=== PATIENT | female | born 1965 | race Caucasian/White ===

== ENCOUNTER → 2021-10-05 | Outpatient (CLI) | payer MEDICAID ==
[~2021-10-05] VITALS: Ht 162.6 cm; Wt 142.0 kg
[~2021-10-05] MED LIST: ABILIFY2 MG PO; CELLCEPT 5500 MG/TAB PO; CURCUMIN95% PO; ESTRACE 1MG1 MG/TAB PO; K-DUR20 MEQ PO; LASIX 40MG TABL40 MG PO; MAGNEBIND 300 21 TAB; MULTI VITAMINS1 TAB PO; PHARMASSURE ZIN50 MG; PROBIOTIC BLEN1 EACH PO; PROTONIX 40MG T40 MG PO; PROVENTIL0.09 MG/A1 IH; SINEQUAN 5050 MG/CAP PO; SINGULAIR 110 MG/TAB PO; SPIRIVA RE2.5 MCG/Ac IH; SYNTHROID0.175 MG PO; VIIBRYD20 MG PO; VITAMIND3 5000 PO
[2021-10-05 11:02] VITALS: BP 119/84; PULSE 71; TEMP 98.1
[2021-10-05 12:27] VITALS: BP 110/57; PULSE 87
[2021-10-05 12:28] VITALS: BP 108/70; PULSE 81
[2021-10-05 12:29] VITALS: BP 116/73; PULSE 81
[2021-10-05 12:30] VITALS: BP 110/70; PULSE 84
--- NOTE | 2021-10-05 13:50 | NUR ---
report given to Gillian HUSSEIN, pt is awake and alert, sits up in bed, in room, call light in reach.
== END ==
LOC: COL.CARD 10:25
DX: I50.9 Heart failure, unspecified (principal)
CPT/HCPCS: A9500; J2785

== ENCOUNTER → 2022-08-11 | Outpatient (CLI) | payer MEDICAID ==
[~2022-08-11] MED LIST changes: +OZEMPIC1 MG/0.71 SQ
== END ==
LOC: COL.RAD 09:22
DX: R13.19 Other dysphagia (principal); Z98.84 Bariatric surgery status

== ENCOUNTER → 2024-01-11 | Outpatient (CLI) | payer MEDICAID ==
[~2024-01-11] MED LIST changes: +BRINTELLIX20 PO; +JARDIANCE10 PO
== END ==
LOC: COL.RAD 08:25
DX: K21.9 Gastro-esophageal reflux disease without esophagitis (principal); Z98.84 Bariatric surgery status